=== PATIENT | female | born 1995 | race Caucasian/White ===

== ENCOUNTER 2022-05-25 16:53 | Emergency (ER) | payer BC ==
[~2022-05-25] VITALS: Ht 167.6 cm; Wt 63.5 kg
--- NOTE | 2022-05-25 17:30 | NUR ---
RECEIVED PT 26 yrs female walking in c/o s/p fell down from scoter pain on rt elbow and skin abration on lt thigh
--- NOTE | 2022-05-25 17:40 | NUR ---
SEEN BY DR. CUMMINGS
--- NOTE | 2022-05-25 17:55 | NUR ---
X RAY DONE AT BED SIDE
--- NOTE | 2022-05-25 18:05 | NUR ---
D/C HOME WITH RT ARM SLING
[2022-05-25] MEDS ORDERED: NAPR-1009 PO (18:16)
[2022-05-25] MEDS ORDERED: IBUPROFEN 600 MG TABLET ONE (18:16)
[2022-05-25] MEDS: IBUPROFEN 600 MG TABLET PO ONE (18:17)
[2022-05-25 18:40] VITALS: BP 120/72
== END 2022-05-25 18:40 | disposition home or self-care (01) ==
LOC: ER 16:55
DX: S52.124A Nondisplaced fracture of head of right radius, initial encounter for closed fracture (principal); S70.312A Abrasion, left thigh, initial encounter; W05.1XXA Fall from non-moving nonmotorized scooter, initial encounter; Y93.55 Activity, bike riding; Y92.89 Other specified places as the place of occurrence of the external cause; Y99.8 Other external cause status
CPT/HCPCS: 73080-TC